=== PATIENT | male | born 1975 | race Caucasian/White ===

== ENCOUNTER → 2017-05-21 | Outpatient (CLI) | payer OTHER ==
--- NOTE | 2017-05-21 11:05 | DIAGNOSTIC IMAGING REPORT ---
Study: Fusion CT sinuses. HISTORY: Chronic sinusitis findings: Examination is acquired transaxially. Multi axial reformatted images are obtained. Minimal mucosal thickening posterior sphenoid sinus. The ethmoid air cells are considered clear. Maxillary and frontal sinuses are clear. Ostiomeatal units are patent bilaterally. Mild hypertrophic change nasal turbinates. No evidence for bony destructive process. IMPRESSION: Minimal mucosal thickening of the sphenoid sinuses. 2. Sinuses otherwise are clear. 3. Minimal hypertrophic change nasal turbinates. Electronically signed by: Declan Aleman M.D. 05/21/2017 11:03 AM Dictated Date/Time: 05/21/2017 11:01 AM
== END | disposition home or self-care (01) ==
LOC: C.CTS 10:36
PROVIDERS: ATTEND Physician Assistant
DX: J32.9 Chronic sinusitis, unspecified (principal)